=== PATIENT | female | born 1960 | race Caucasian/White ===

== ENCOUNTER 2020-07-11 23:10 | Emergency (ER) | payer OTHER ==
[~2020-07-11] VITALS: Ht 152.4 cm; Wt 74.6 kg
[2020-07-11 23:16] VITALS: Ht 152.4 cm; Wt 74.6 kg
[2020-07-12 01:27] LABS: BASOPHIL % 0.1 % (0-2); PLATELET COUNT 429 x10^3mcL (130-400); RED CELL DISTRIBUTION WIDTH 13.5 % (11.5-14.5)
[2020-07-12 01:43] LABS: ALBUMIN 4.8 g/dL (3.4-5.0); BILIRUBIN TOTAL 1.22 mg/dL (0.20-1.00); CALCIUM 9.7 mg/dL (8.5-10.1); CARBON DIOXIDE 29.9 mmol/L (21-32); CREATININE SERUM 1.2 mg/dL (0.6-1.0)
[2020-07-12 01:45] LABS: TOTAL PROTEIN, SERUM 8.6 g/dL (6.4-8.2)
[2020-07-12 01:47] LABS: POTASSIUM SERUM 2.9 mmol/L (3.5-5.1)
[2020-07-12 03:54] VITALS: BP 163/84
== END 2020-07-12 03:57 | disposition home or self-care (01) ==
LOC: ED 23:10
PROVIDERS: Emergency Medicine
DX: K52.9 Noninfective gastroenteritis and colitis, unspecified (principal); Z20.828 Contact with and (suspected) exposure to other viral communicable diseases
CPT/HCPCS: J2405; J7030; U0003-CS